=== PATIENT | female | born 1940 | race Caucasian/White ===

== ENCOUNTER 2022-02-10 03:28 | Inpatient (IN) | payer OTHER ==
[~2022-02-10] VITALS: Ht 159 cm; Wt 89.8 kg
--- NOTE | 2022-02-10 12:27 | NUR ---
SYRUP MACHINE LABORER NOTES: ADMITTED A 81YO FEMALE PT FROM [facility]. PATIENT ALERT AND ORIENTED X 4 AMHARIC SPEAKING ABLE TO UNDERSTAND WOLOF.SON AT BED SIDE. PATIENT COMPLAINING OF PAIN 3/10 CHEST PAIN, INFORMED MD AND F/U MED RECON.NO SOB OR CARDIAC DISTRESS NOTED, ON PUMPER GAGER APPRENTICE WITH CURRENT READING OF SINU RHYTHM @81 BPM. BODY ASSESSMENT DONE SKIN IS INTACT. SAFETY MEASURES INITIATED: BED LOCKED AND LOWEST POSITION, SIDE RAILS UP X 2. CALL LIGHT IN EASY REACH FOR HELP. CALL LIGHT IN EASY REACH FOR HELP. WILL MONITOR ACCORDINGLY.
[2022-02-10] MEDS ORDERED: AMLO-213 PO (13:13)
[2022-02-10] MEDS ORDERED: METF-440 PO (13:13)
[2022-02-10] MEDS ORDERED: CLON2TAB11 PO (13:13)
[2022-02-10] MEDS ORDERED: ASPI-1169 PO (13:13)
[2022-02-10] MEDS ORDERED: LEVO150T8 PO (13:13)
[2022-02-10] MEDS ORDERED: NITR0.4T48 SL (13:13)
[2022-02-10] MEDS ORDERED: CLOP75TA15 PO (13:13)
[2022-02-10] MEDS ORDERED: INSU100V7 SQ (13:13)
[2022-02-10] MEDS ORDERED: ATOR40TA PO (13:13)
[2022-02-10] MEDS ORDERED: DULA0.75 SQ (13:13)
[2022-02-10] MEDS ORDERED: PANT40TA49 PO (13:13)
[2022-02-10] MEDS ORDERED: METO-358 PO (13:13)
[2022-02-10] MEDS ORDERED: GABA300C PO (13:13)
[2022-02-10] MEDS ORDERED: DULO30CA52 PO (13:13)
[2022-02-10] MEDS ORDERED: ISOS30TA86 PO (14:10)
[2022-02-10] MEDS ORDERED: ZOLPIDEM TARTRATE 5 MG TABLET PO PRN (15:00)
[2022-02-10] MEDS ORDERED: DEXTROSE 50%-WATER 50 ML DISP.SYRIN IV PRN (15:00)
[2022-02-10] MEDS ORDERED: METOPROLOL SUCCINATE 50 MG TAB.SR.24H PO SCH (15:00)
[2022-02-10] MEDS ORDERED: ACETAMINOPHEN 325 MG TABLET PO PRN (15:00)
[2022-02-10] MEDS ORDERED: HYDROCODONE/APAP 5/325MG TABLET PO PRN (15:00)
[2022-02-10] MEDS ORDERED: MORPHINE SULFATE INJ 2 MG/ML DISP.SYRIN IV PRN ×2 (15:00)
[2022-02-10] MEDS ORDERED: MAG HYDROX/AL HYDROX/SIMETH 30 ML UDC PO PRN (15:00)
[2022-02-10] MEDS ORDERED: hydrALAZINE HCL IV 20 MG VIAL IV PRN (15:00)
[2022-02-10] MEDS ORDERED: Z GUARD REMEDY 4 OZ OINT TP PRN (15:00)
[2022-02-10] MEDS ORDERED: MAGNESIUM HYDROXIDE 30 ML UDC PO PRN (15:00)
[2022-02-10] MEDS ORDERED: ENOXAPARIN SODIUM 100 MG/ML DISP.SYRIN SQ SCH (15:14)
[2022-02-10] MEDS: NITROGLYCERIN 0.4 MG/TAB BOTTLE SL PRN ×4 (15:16→19:00)
[2022-02-10] MEDS: ONDANSETRON HCL/PF 4 MG/2 ML VIAL IVP PRN ×2 (15:17→19:44)
[2022-02-10] MEDS: AMLODIPINE BESYLATE 10 MG TABLET PO SCH (15:19)
[2022-02-10] MEDS: PANTOPRAZOLE 40 MG TABLET.DR PO SCH (15:19)
[2022-02-10] MEDS ORDERED: LORAZEPAM INJ 2 MG/ML VIAL IV PRN (15:30)
[2022-02-10 16:30] LABS: CALCIUM, SERUM 8.3 mg/dL (8.5-10.1); POTASSIUM 3.4 mmol/L (3.5-5.1)
[2022-02-10] MEDS: ISOSORBIDE MONONITRATE (30MG) 30 MG TAB.SR.24H PO SCH (16:38)
[2022-02-10] MEDS: GABAPENTIN 300 MG CAPSULE PO SCH (16:39)
--- NOTE | 2022-02-10 16:55 | NUR ---
RN NOTES: RECEIVED A CALL FROM LAB ([facility]) CRITICAL LAB [facility] 218- INFORMED DR CASILLAS, NO NEW ORDER. ITS TRENDING DOWN.
[2022-02-10] MEDS: BLOOD SUGAR DIAGNOSTIC 1 EACH STRIP IN SCH ×2 (16:56→21:20)
[2022-02-10] MEDS: INSULIN REGULAR, HUMAN 100 UNIT/ML 3 ML VIAL SQ PRN ×2 (16:58→21:29)
[2022-02-10] MEDS ORDERED: POTASSIUM CHLORIDE 20 MEQ TAB.PRT.SR PO ONE (18:30)
--- NOTE | 2022-02-10 18:40 | NUR ---
SUBPOENA SERVER CLOSING NOTES: PATIENT IN BED, AWAKE, ALERT NAND ORIENTED X 4 YAKUT SPEAKING FAMILY AT BED SIDE. NO SOB OR CARDIAC DISTRESS NOTED ON O2 INHALATION @ 2LPM VIA NC FOR COMFORT. DENIES PAIN AT THIS TIME, PAIN MANAGEMENT ORDERED. IV ACCESS ON LAC GAUGE 20 PATENT, INTACT AND SL. ON FIREWORKS INSPECTOR WITH CURRENT READING SINUS RHYTHM @71 BPM. SAFETY MEASURES MAINTAINED:BED LOCKED AND IN LOWEST POSITION, SIDE RAIL X 2. CALL LIGHT IN EASY REACH. ENDORSED TO FATBACK TRIMMER RN FOR CONTINUITY OF CARE.
--- NOTE | 2022-02-10 19:27 | NUR ---
RN NOTE PT REPORTING CHEST PAIN 8/10 PRN MORPHINE GIVEN TOLERATED WELL.
--- NOTE | 2022-02-10 19:27 | NUR ---
FILER FINISH OPENING NOTE PATIENT IN BED, AWAKE, ALERT NAND ORIENTED X 4 DUTCH SPEAKING FAMILY AT BED SIDE. NO SOB OR CARDIAC DISTRESS NOTED ON O2 INHALATION @ 2LPM VIA NC FOR COMFORT. DENIES PAIN AT THIS TIME, PAIN MANAGEMENT ORDERED. IV ACCESS ON LAC GAUGE 20 PATENT, INTACT AND SL. ON FERN PICKER WITH CURRENT READING SINUS RHYTHM @71 BPM. SAFETY MEASURES MAINTAINED:BED LOCKED AND IN LOWEST POSITION, SIDE RAIL X 2. CALL LIGHT IN EASY REACH.
--- NOTE | 2022-02-10 19:48 | NUR ---
RN NOTE PRN ZOFRAN GIVEN FOR NAUSEA TOLERATED WELL.
[2022-02-10 19:59] LABS: THYROID STIMULATING HORMONE 4.366 uIU/mL (0.358-3.74)
[2022-02-10 20:00] VITALS: BP_SYST 125; BP_SYST 127; BP_DIAS 72; BP_DIAS 81
[2022-02-10] MEDS: ATORVASTATIN 40 MG TABLET PO SCH (21:20)
[2022-02-11] VITALS: BP 108/57
[2022-02-11 04:00] VITALS: BP 116/65
[2022-02-11] MEDS ORDERED: ENOXAPARIN SODIUM 100 MG/ML DISP.SYRIN SQ SCH (04:00)
[2022-02-11] MEDS: INSULIN REGULAR, HUMAN 100 UNIT/ML 3 ML VIAL SQ PRN ×4 (06:11→22:25)
[2022-02-11] MEDS: BLOOD SUGAR DIAGNOSTIC 1 EACH STRIP IN SCH ×4 (06:31→22:26)
--- NOTE | 2022-02-11 06:38 | NUR ---
EMPLOYMENT COACH CLOSING NOTE PATIENT IN BED, AWAKE, ALERT NAND ORIENTED X 4 HEBREW SPEAKING. NO SOB OR CARDIAC DISTRESS NOTED . DENIES PAIN AT THIS TIME. NO CHEST PAIN REPORTED DURING SHIFT. IV ACCESS ON LAC GAUGE 20 PATENT, INTACT AND SL. ON SPECK DYER WITH CURRENT READING SINUS RHYTHM . SAFETY MEASURES MAINTAINED:BED LOCKED AND IN LOWEST POSITION, SIDE RAIL X 2. CALL LIGHT IN EASY REACH. PT NPO SINCE MIDNIGHT FOR [facility] CONSENTS SIGNED IN CHART. WILL ENDORSE CARE TO DAY SHIFT NURSE.
[2022-02-11 06:40] LABS: BASOPHILS % (AUTO) 0.3 % (0.0-2.0); EOSINOPHILS % (AUTO) 8.6 % (0.0-6.0); HEMATOCRIT 40 % (33-45); HEMOGLOBIN 13.3 g/dL (11.5-14.8); LYMPHOCYTES # (AUTO) 1.7 K/uL (0.8-4.8); LYMPHOCYTES % (AUTO) 24.4 % (20.0-44.0); MEAN CORPUSCULAR HGB CONC 33 g/dl (31.0-36.0); MEAN CORPUSCULAR VOLUME 88 fL (82-100); MONOCYTES # (AUTO) 0.7 K/uL (0.1-1.30); NEUTROPHILS % (AUTO) 56.7 % (43.0-81.0); PLATELET COUNT (AUTO) 208 K/uL (150-450); RED BLOOD CELL COUNT(AUTO) 4.58 MIL/uL (4.0-5.2); WHITE BLOOD COUNT (AUTO) 7.1 K/uL (4.3-11.0)
[2022-02-11 06:45] LABS: CHOLESTEROL 104 mg/dL (<200); HDL CHOLESTEROL 34 mg/dL (40-60); LDL 60 mg/dL (0-99); TRIGLYCERIDES 118 mg/dL (30-150)
--- NOTE | 2022-02-11 07:08 | NUR ---
COMPUTER TECH OPENING NOTES RECEIVED PATIENT SLEEPING IN BED, A/Ox4 RWANDAN SPEAKING, ABLE TO MAKE NEEDS KNOWN. NO S/S OF PAIN OR DISCOMFORT NOTED. ON TELE MONITORING SHOWING SR HR 65, NO C/O OF PAIN OR DISCOMFORT. IV ACCESS R AC #20 SL. INTACT AND PATENT, NO S/S OF INFILTRATION. PATIENT IS AMBULATORY, HAS BATHROOM PRIVILEGES. SKIN INTACT. SAFETY MEASURES IN PLACE: BED LOCKED AND IN LOWEST POSITION, SIDE RAILS UP x2, CALL LIGHT WITHIN REACH, HOB ELEVATED. WILL CONTINUE TO MONITOR.
[2022-02-11 07:20] LABS: CALCIUM, SERUM 8.2 mg/dL (8.5-10.1); CARBON DIOXIDE 27 mmol/L (21-32); CHLORIDE 102 mmol/L (98-107); CREATININE 1.3 mg/dL (0.6-1.3); GLUCOSE 220 mg/dL (74-106); MAGNESIUM 1.6 mg/dL (1.8-2.4); PHOSPHORUS 3.9 mg/dL (2.5-4.9); POTASSIUM 4.2 mmol/L (3.5-5.1); SODIUM SERUM 137 mmol/L (136-145); UREA NITROGEN, BLOOD 16 mg/dL (7-18)
[2022-02-11 08:00] VITALS: BP 118/61
[2022-02-11] MEDS: PANTOPRAZOLE 40 MG TABLET.DR PO SCH (08:21)
[2022-02-11] MEDS: LEVOTHYROXINE SODIUM 75 MCG TABLET PO SCH (08:21)
[2022-02-11] MEDS: DULOXETINE HCL 30 MG CAPSULE.DR PO SCH (08:21)
[2022-02-11] MEDS: ASPIRIN 81 MG TAB.CHEW PO SCH (08:21)
[2022-02-11] MEDS: GABAPENTIN 300 MG CAPSULE PO SCH ×3 (08:22→17:04)
[2022-02-11] MEDS: ISOSORBIDE MONONITRATE (30MG) 30 MG TAB.SR.24H PO SCH ×2 (08:22→17:05)
[2022-02-11] MEDS: CLOPIDOGREL BISULFATE 75 MG TABLET PO SCH (08:22)
[2022-02-11] MEDS: AMLODIPINE BESYLATE 10 MG TABLET PO SCH (08:22)
[2022-02-11] MEDS: ENOXAPARIN SODIUM 40 MG/0.4 ML DISP.SYRIN SQ SCH (08:27)
[2022-02-11] MEDS: Magnesium 1GM/D5W 100ML PREMIX 100 ML IV SCH ×2 (10:03→11:22)
[2022-02-11] MEDS ORDERED: CT SWABBABLE VALVE TRANS SET 1 EA INFUS.SET MC ONE (11:16)
[2022-02-11] MEDS ORDERED: IOHEXOL-350 100 ML VIAL IV ONE (11:16)
[2022-02-11] MEDS ORDERED: IV NS 0.9% 250 ML IV ONE (11:16)
--- NOTE | 2022-02-11 11:29 | NUR ---
ARVIND NOTES PATIENT PICKED UP FOR [facility], ACCOMPANIED BY 1 PROCEDURE TECH VIA WHEELCHAIR. PATIENT LEFT IN STABLE CONDITION Addendum: 02/11/22 at 1226 by THOMAS GARCIA RN ADDENDUM: REPORT GIVEN TO ARVIND IN TOOL SPECIALIST
[2022-02-11] MEDS: METOPROLOL TARTRATE INJ 5 MG/5 ML AMPUL IVP PRN ×5 (11:45→12:05)
[2022-02-11] MEDS ORDERED: METOPROLOL TARTRATE INJ 5 MG/5 ML AMPUL ONE ×2 (11:46→12:02)
--- NOTE | 2022-02-11 12:20 | NUR ---
RN/CTA CTA COMPLETED AT THIS TIME. PATIENT SALVADOR. PROCEDURE. DENIED PAIN OR SOB AT THIS TIME. REPORT GIVEN TO ARVIND GOMEZ FOR JOSE ALFREDO. (PLS SEE CTA INTERVENTION NOTES)
[2022-02-11 12:30] VITALS: BP 126/69
[2022-02-11] MEDS ORDERED: NITROGLYCERIN 0.4 MG/TAB BOTTLE SL ONE (12:30)
--- NOTE | 2022-02-11 12:40 | NUR ---
RN/CTA PATIENT A/OX3, ABLE TO MAKE NEEDS KNOWN. DENIED PAIN OR SOB AT THIS TIME. PATIENT AWARE OF PLAN OF CARE. NOTED CONSENT AND SIGNED IN CHART.
[2022-02-11 16:56] VITALS: BP 119/61
[2022-02-11] MEDS: METOPROLOL TARTRATE 50 MG TABLET PO SCH (18:57)
--- NOTE | 2022-02-11 19:00 | NUR ---
SOLUTION DESIGNER CLOSING NOTES PATIENT SLEEPING IN BED, A/Ox4 JORDANIAN SPEAKING, ABLE TO MAKE NEEDS KNOWN. STABLE ON ROOM AIR. NO S/S OF PAIN OR DISCOMFORT NOTED. ON TELE MONITORING SHOWING SR HR 65, NO C/O OF PAIN OR DISCOMFORT. IV ACCESS R AC #20 SL. INTACT AND PATENT, NO S/S OF INFILTRATION. PATIENT IS AMBULATORY, HAS BATHROOM PRIVILEGES. SKIN INTACT. SAFETY MEASURES IN PLACE: BED LOCKED AND IN LOWEST POSITION, SIDE RAILS UP x2, CALL LIGHT WITHIN REACH, HOB ELEVATED. WILL ENDORSE TO NEXT SHIFT ANY JOSE ALFREDO.
--- NOTE | 2022-02-11 19:40 | NUR ---
MEASURING MACHINE TENDER OPENING NOTE RECEIVED PATIENT SLEEPING IN BED, A/Ox4 SLOVAK SPEAKING, ABLE TO MAKE NEEDS KNOWN. NO S/S OF PAIN OR DISCOMFORT NOTED. ON TELE MONITORING READING SR HR 64, NO C/O OF PAIN OR DISCOMFORT. IV ACCESS RIGHT AC #20 SL. INTACT AND PATENT. SKIN INTACT. SAFETY MEASURES IN PLACE: BED LOCKED AND IN LOWEST POSITION, SIDE RAILS UP x2, CALL LIGHT WITHIN REACH, HOB ELEVATED. WILL CONTINUE TO MONITOR PT.
[2022-02-11 20:00] VITALS: BP 119/64
[2022-02-11] MEDS: ATORVASTATIN 40 MG TABLET PO SCH (21:50)
[2022-02-12] MEDS: METOPROLOL TARTRATE 50 MG TABLET PO SCH ×3 (00:58→12:36)
[2022-02-12 03:01] VITALS: BP 109/69
[2022-02-12 06:12] LABS: CALCIUM, SERUM 8.6 mg/dL (8.5-10.1); CARBON DIOXIDE 27 mmol/L (21-32); CHLORIDE 100 mmol/L (98-107); CREATININE 1.5 mg/dL (0.6-1.3); GLUCOSE 193 mg/dL (74-106); POTASSIUM 4.1 mmol/L (3.5-5.1); SODIUM SERUM 134 mmol/L (136-145); UREA NITROGEN, BLOOD 19 mg/dL (7-18)
--- NOTE | 2022-02-12 07:10 | NUR ---
ENTERTAINMENT MANAGER CLOSING NOTE LEFT PATIENT IN BED, AWAKE, ALERT NAND ORIENTED X 4 SLOVAK SPEAKING. NO SOB OR CARDIAC DISTRESS NOTED . DENIES PAIN AT THIS TIME. NO C/O CHEST PAIN DURING SHIFT. IV ACCESS TO LEFT AC GAUGE 20 PATENT, INTACT AND SL. ON HOME HEALTH TRAVEL OT WITH CURRENT READING SINUS RHYTHM . SAFETY MEASURES MAINTAINED: BED LOCKED AND IN LOWEST POSITION, SIDE RAIL X 2. CALL LIGHT IN EASY REACH. WILL ENDORSE CARE TO DAY SHIFT NURSE.
[2022-02-12] MEDS: INSULIN REGULAR, HUMAN 100 UNIT/ML 3 ML VIAL SQ PRN ×2 (07:14→11:21)
[2022-02-12] MEDS: BLOOD SUGAR DIAGNOSTIC 1 EACH STRIP IN SCH ×2 (07:14→11:16)
--- NOTE | 2022-02-12 07:40 | NUR ---
TELEPHONE WORKER OPENING NOTE RECEIVED PATIENT IN BED, AWAKE, A/Ox4 OMANI SPEAKING, ABLE TO MAKE NEEDS KNOWN. DENIES ANY PAIN OR DISCOMFORT AT THIS TIME. NO S/SX OF RESPIRATORY DISTRESS NOTED, BREATHING EVEN AND UNLABORED. TELE MONITORING READING SINUS YARY AT 59 BPM, IV ACCESS RIGHT AC #20 SALINE LOCKED, INTACT AND PATENT, FLUSHING WELL. SAFETY MEASURES IN PLACE: BED LOCKED AND IN LOWEST POSITION, SIDE RAILS UP x2, CALL LIGHT AND TRAY TABLE WITHIN REACH, HOB ELEVATED. WILL CONTINUE PLAN OF CARE..
[2022-02-12 08:00] VITALS: BP 131/70
[2022-02-12] MEDS: LEVOTHYROXINE SODIUM 75 MCG TABLET PO SCH (08:00)
[2022-02-12] MEDS: PANTOPRAZOLE 40 MG TABLET.DR PO SCH ×2 (08:22→08:46)
[2022-02-12] MEDS: AMLODIPINE BESYLATE 10 MG TABLET PO SCH (08:45)
[2022-02-12] MEDS: ASPIRIN 81 MG TAB.CHEW PO SCH (08:46)
[2022-02-12] MEDS: CLOPIDOGREL BISULFATE 75 MG TABLET PO SCH (08:46)
[2022-02-12] MEDS: GABAPENTIN 300 MG CAPSULE PO SCH ×2 (08:46→12:34)
[2022-02-12] MEDS: DULOXETINE HCL 30 MG CAPSULE.DR PO SCH (08:46)
[2022-02-12] MEDS: ISOSORBIDE MONONITRATE (30MG) 30 MG TAB.SR.24H PO SCH (08:46)
[2022-02-12] MEDS: ENOXAPARIN SODIUM 40 MG/0.4 ML DISP.SYRIN SQ SCH ×2 (08:48→11:08)
[2022-02-12 10:07] LABS: *SPE A/G RATIO 0.9 (0.7-1.7); *SPE ALPHA-1-GLOBULIN 0.2 g/dL (0.0-0.4); *SPE ALPHA-2-GLOBULIN 0.7 g/dL (0.4-1.0); *SPE BETA GLOBULIN 1.3 g/dL (0.7-1.3); *SPE M-SPIKE Not Observed g/dL (Not Observed)
[2022-02-12 12:00] VITALS: BP 125/72
[2022-02-12 16:00] VITALS: BP 112/52
--- NOTE | 2022-02-12 16:53 | NUR ---
SHIRRING TENDER DISCHARGE NOTE PT DISCHARGED TO A HIGHER LEVEL OF CARE AT [facility] IN STABLE CONDITION. PT AOX4, SWISS SPEAKING ONLY, ABLE TO MAKE NEEDS KNOWN, ON ROOM AIR SATURATING WELL WITH SPO2 98%, NO SOB NOTED, NOT IN ANY SIGN OF RESPIRATORY DISTRESS. LAST TELE READING WAS SINUS RHYTHM AT 97 BPM. VITAL SIGNS TAKEN STABLE AND RECORDED. PT'S SKIN IS INTACT, NO EDEMA NOTED. DENIES PAIN OR DISCOMFORT AT THIS TIME. DISCHARGE INSTRUCTIONS GIVEN TO PATIENT AND DAUGHTER TOVA WITNESSING. IV ACCESS OF RAC G#20 SL KEPT INSTRUCTED BY ARVIND FRASER OF THE RECEIVING [facility]. PT LEFT THE UNIT AT 1630 VIA GURNEY. PATIENT WAS ACCOMPANIED BY DAUGHTER AND 2 READING SPECIALIST. MD AND CHARGE NURSE AWARE OF THE DISCHARGE.
== END 2022-02-12 16:30 | disposition short-term general hospital (02) | DRG 282 ==
LOC: MED 12:25 → TELE 12:46
PROVIDERS: ADMIT Nurse Practitioner Acute Care; ATTEND Nurse Practitioner Acute Care
DX: I21.4 Non-ST elevation (NSTEMI) myocardial infarction (principal); E11.40 Type 2 diabetes mellitus with diabetic neuropathy, unspecified; I25.10 Atherosclerotic heart disease of native coronary artery without angina pectoris; E11.65 Type 2 diabetes mellitus with hyperglycemia; Z20.822 Contact with and (suspected) exposure to COVID-19; E03.9 Hypothyroidism, unspecified; E78.5 Hyperlipidemia, unspecified; K21.9 Gastro-esophageal reflux disease without esophagitis; F32.A Depression, unspecified; Z68.39 Body mass index [BMI] 39.0-39.9, adult; I10 Essential (primary) hypertension; Z90.49 Acquired absence of other specified parts of digestive tract; Z98.891 History of uterine scar from previous surgery; G47.33 Obstructive sleep apnea (adult) (pediatric); E66.01 Morbid (severe) obesity due to excess calories; E83.42 Hypomagnesemia
CPT/HCPCS: 36415; 75574; 80048-TC; 80061-TC; 82962-TC; 83735-TC; 84100-TC; 84155; 84165; 84439-TC; 84443-TC; 84484-TC; 85025-TC; 87081-TC; 93307-TC; G0378; J1650; J1815; J2270; J2405; J3475; J3490; J7050; Q9967